=== PATIENT | female | born 1980 | race Caucasian/White ===

== ENCOUNTER 2017-03-11 10:52 | Outpatient (CLI) | payer BC ==
--- NOTE | 2017-03-14 15:19 | OP Clinic Progress Note ---
REASON FOR VISIT: Tami Jackson returns for follow up. I saw her in my [place] office. She had been referred by [facility] for joint pain. At the time of presentation, she had pain and swelling of both wrists and ankles. It was severe, throbbing, and constant. It started about 2 months ago. In the emergency room (ER), labs were done. Her sedimentation rate was 86. Her C- reactive protein was 12.69, rheumatoid factor was positive at 17. She was given prednisone which helped all of her symptoms; however, she does not tolerate prednisone. PAST MEDICAL HISTORY: 1. Asthma. 2. Headaches. 3. Gastric ulcer. PRESENT MEDICATIONS: 1. Ibuprofen. 2. Sprintec. ALLERGIES: She is allergic to: 1. Keflex. 2. Penicillin. Intolerant to prednisone. SOCIAL HISTORY: She is a former smoker. No drinking. FAMILY HISTORY: Family history is negative. REVIEW OF SYSTEMS: Positive for fever, fatigue, weakness, red and dry eyes, running nose, mouth sores, hearing impairment, feeling of shortness of breath, occasional anterior chest pain, heartburn, nervousness, dry skin, headaches, easy bruising and swollen glands. PHYSICAL EXAMINATION: VITAL SIGNS: Height: 5 feet 3 inches. Weight: 125. T: 96.9, R: 18, heart rate: 72, BP: 127/75. HEENT: Grossly unremarkable. External ears and nose are unremarkable. No alopecia. LUNGS: Clear with no crackles or wheezing. HEART: Regular rate and rhythm. ABDOMEN: Soft and nontender. VASCULAR: No edema or cyanosis. PERIPHERAL JOINTS: Tenderness at the wrists, both ankles, otherwise, good range of motion. No deformities. The PIPs and MCPs are spared. Elbows and shoulders are unremarkable. Note: She is complaining of numbness of the left knee. LABORATORY STUDIES: AVISE testing showed positive thyroid antibodies, low positive SEE, extractable nuclear antigens were negative. CCP and MCV antibodies were negative. IMPRESSION AND PLAN: 1. Seropositive rheumatoid arthritis, mild. We will put the patient on Plaquenil 200 mg twice a day and reevaluate in 2 months. 2. Stop ibuprofen and may take naproxen p.r.n. as needed. 3. Discussed the nature of her diagnosis and prognosis, risks and benefits of Plaquenil, including the need for yearly eye exams and to monitor for skin discoloration. Thank you very much. cc: Dr. Jolynn PLUNKETT
== END 2017-03-11 13:48 ==
LOC: RHEU 10:52
PROVIDERS: ATTEND Internal Medicine
DX: M05.79 Rheumatoid arthritis with rheumatoid factor of multiple sites without organ or systems involvement (principal)
CPT/HCPCS: 99214